=== PATIENT | female | born 1935 | race Hispanic/Latino ===

== ENCOUNTER 2018-04-23 06:43 | Observation (INO) | payer MEDICARE ==
[2018-04-21 15:56] LABS: BASOPHILS % 0.3 % (0.0-1.0); EOSINOPHILS # (AUTO) 0.1 (0.0-0.4); EOSINOPHILS % 0.5 % (0.0-6.0); HEMATOCRIT 42.5 % (34.2-44.1); HEMOGLOBIN 14.1 g/dL (12.0-16.0); LYMPHOCYTES # (AUTO) 3.3 (1.0-3.2); LYMPHOCYTES % 36.1 % (18.0-39.1); MEAN CORPUSCULAR HEMOGLOBIN 31.3 pg (28-32); MEAN CORPUSCULAR HGB CONC 33.2 g/dL (31-35); MEAN CORPUSCULAR VOLUME 94.2 fL (81-99); MONOCYTES # (AUTO) 0.8 (0.2-0.8); MONOCYTES % 8.5 % (4.4-11.3); NEUTROPHILS % 54.1 % (38.7-80.0); PLATELET COUNT 310 x10e3/uL (140-360); RED BLOOD COUNT 4.51 x10e6/uL (3.6-5.1); RED CELL DISTRIBUTION WIDTH 13.6 % (11.7-14.4)
--- NOTE | 2018-04-21 16:04 | Diagnostic Imaging Report ---
EXAMINATION: CHEST 2 VIEWS INDICATION: Preop. Back pain ^MD ORDER ^[id number] ^1530 ^PRE ADMIT COMPARISON: None FINDINGS: TUBES and LINES: None. LUNGS: Lungs are well inflated. Lungs are clear. There is no evidence of pneumonia or pulmonary edema. PLEURA: No pleural effusion or pneumothorax. HEART AND MEDIASTINUM: The cardiomediastinal silhouette is unremarkable. BONES AND SOFT TISSUES: No acute osseous lesion. Soft tissues are unremarkable. UPPER ABDOMEN: No free air under the diaphragm. IMPRESSION: No acute thoracic abnormality. Signed by: Dr. Jay Miller M.D. on 04/21/2018 4:00 PM
[2018-04-21 16:16] LABS: INR 0.94; PROTHROMBIN TIME 13.4 seconds (11.9-14.5)
[2018-04-21 16:17] LABS: ANION GAP 15.1 mmol/L (8-16); BLOOD UREA NITROGEN 15 mg/dL (7-26); BUN/CREATININE RATIO 18 (6-25); CALCIUM 9.9 mg/dL (8.4-10.2); CARBON DIOXIDE 23 mmol/L (22-29); CHLORIDE 101 mmol/L (98-107); CREATININE, SERUM 0.85 mg/dL (0.57-1.11); EST GLOMERULAR FILTRATION RATE > 60 ML/MIN (60-); GLUCOSE 88 mg/dL (74-118); PARTIAL THROMBOPLASTIN TIME 31.6 seconds (23.8-35.5); POTASSIUM 4.1 mmol/L (3.5-5.1); SODIUM 135 mmol/L (136-145)
[~2018-04-23] VITALS: Ht 157.5 cm; Wt 89.9 kg
[~2018-04-23 06:43] MED LIST: ACETAMINOPHEN500 M1 PO; BACITRACIN 50,000 UNIT VIAL ONE; BUPIVACAINE 0.5%/EPI 30 ML SDV INJ ONE; CIPROFLOXACIN500 MG PO; GELATIN SPONGE 12-7MM ONE; IBUPROFEN600 MG PO; LEVOTHYROXINE50 MCG PO; MYRBETRIQ25 MG PO; NAPROXEN250 MG PO; NORCO 5-325 TA1 EACH PO; SOMA350 MG PO; THROMBIN FOR SOLN 5,000 UNIT VIAL ONE; ULTRAM 50MG50 MG PO
--- OUTSIDE RECORDS SUMMARY | 2018-04-23 06:46 | XMS REPORT ---
Author Author [facility] Organization [facility] Address Unknown Phone Unavailable Care Team Providers Care Circular Distributor Name Role Phone ARCAELI HOUSE Unavailable Unavailable Problems This patient has no known problems. Allergies, Adverse Reactions, Alerts This patient has no known allergies or adverse reactions. Medications This patient has no known medications. Results Test Description Test Time Test Comments Text Results Atomic Results Result Comments CHEST 2 VIEWS 2018-04-21 16:00:00 [place] [id number] Patient Name: CATHY MORAN MR #: [id number] : 1935 Age/Sex: 82/F Req #: [id number] Adm Physician: Ordered by: ARACELI HOUSE MD Report #: [id number] Location: OR Room/Bed: Procedure: [id number] DX/CHEST 2 VIEWS Exam Date: 04/21/18 Exam Time: 1530 REPORT STATUS: Signed EXAMINATION: CHEST 2 VIEWS INDICATION: Preop. Back pain ORDER [id number] PRE ADMIT COMPARISON: None FINDINGS: TUBES and LINES: None. LUNGS: Lungs are well inflated. Lungs are clear. There is no evidence of pneumonia or pulmonary edema. PLEURA: No pleural effusion or pneumothorax. HEART AND MEDIASTINUM: The cardiomediastinal silhouette is unremarkable. BONES AND SOFT TISSUES: No acute osseous lesion. Soft tissues are unremarkable. UPPER ABDOMEN: No free air under the diaphragm. IMPRESSION: No acute thoracic abnormality. Signed by: Dr. Jay Miller M.D. on 04/21/2018 4:00 PM Dictated By: JYA MILLER MD, MD 99 Transcribed By: TOM on 04/21/181599 COPY TO: ARACELI HOUSE MD
[2018-04-23] MEDS ORDERED: CEFAZOLIN SOD 2 GM/D5W 50ML 50 ML IV ONE (07:16)
[2018-04-23] MEDS ORDERED: LIDOCAINE HCL (LTA) 4 ML SOLN ONE (07:20)
[2018-04-23] MEDS ORDERED: GELATIN SPONGE 12-7MM ONE (07:58)
[2018-04-23] MEDS ORDERED: BACITRACIN 50,000 UNIT VIAL ONE (07:58)
[2018-04-23] MEDS ORDERED: THROMBIN FOR SOLN 5,000 UNIT VIAL ONE (07:58)
[2018-04-23] MEDS ORDERED: BUPIVACAINE 0.5%/EPI 30 ML SDV INJ ONE (07:58)
[2018-04-23] MEDS: LACTATED RINGER'S 1,000 ML IV SCH (10:18)
[2018-04-23] MEDS ORDERED: PROMETHAZINE HCL (IM) 25 MG/ML VIAL IM PRN (10:30)
[2018-04-23] MEDS ORDERED: CARISOPRODOL 350 MG TAB PO PRN (10:30)
[2018-04-23] MEDS ORDERED: ONDANSETRON HCL INJ 2MG/ML 2ML 2 MG/ML VIAL IV PRN (10:30)
[2018-04-23] MEDS ORDERED: HYDROMORPHONE 2MG/ML 2 MG/ML ML IV PRN (10:30)
[2018-04-23] MEDS ORDERED: ACETAMINOPHEN 325 MG TAB PO PRN (10:30)
[2018-04-23] MEDS ORDERED: MORPHINE SULFATE 5 MG/ML VIAL IM PRN (10:30)
[2018-04-23] MEDS ORDERED: OXYCODONE/ACETAMINOPHEN 5-325 1 EACH TABLET PO PRN (10:30)
[2018-04-23] MEDS ORDERED: MAGNESIUM/ALUMINUM/SIMETHICONE 30 ML UDC PO PRN (10:30)
[2018-04-23] MEDS ORDERED: CEPACOL SORE THROAT LOZENGES PO PRN (10:30)
[2018-04-23] MEDS ORDERED: HYDRALAZINE HCL 20 MG/ML VIAL ONE (10:41)
[2018-04-23] MEDS ORDERED: ONDANSETRON HCL INJ 2MG/ML 2ML 2 MG/ML VIAL ONE ×2 (11:07→18:44)
--- NOTE | 2018-04-23 12:00 | Diagnostic Imaging Report ---
SINGLE VIEW SPINE AND LUMBAR INTRAOPERATIVE - 1 VIEW HISTORY: ^[id number] ^0833 ^X-RAY FOR SURGICAL LEVEL. COMPARISON: None available. FINDINGS: Bones: The spine is not well visualized. Joints: No well evaluated but there appears to be moderate narrowing at L4-L5 and L5-S1. Soft tissues: Surgical needle at the level of L3-L4 vertebral bodies. IMPRESSION: Surgical needle at the level of L3-L4 vertebral bodies. Signed by: Dr. Kerrie Alston M.D. on 04/23/2018 11:56 AM
--- NOTE | 2018-04-23 12:01 | Diagnostic Imaging Report ---
LUMBAR SPINE ONE VIEW INTRAOPERATIVE - 1 VIEW HISTORY: ^[id number] ^[id number] ^X-RAY FOR SURGICAL LEVEL. COMPARISON: None available. FINDINGS: Bones: Vertebral body is not well visualized. Joints: There appears to be narrowing at the L4-L5 and L5-S1. Soft tissues: Surgical needle overlying the superior pedicles of L4 vertebral body. IMPRESSION: Surgical needle overlying the superior pedicles of L4 vertebral body. Signed by: Dr. Kerrie Alston M.D. on 04/23/2018 11:58 AM
[2018-04-23] MEDS ORDERED: FENTANYL CITRATE/PF 100MCG/2 ML INJ ONE (13:34)
--- NOTE | 2018-04-23 13:53 | Operative Report ---
DATE OF PROCEDURE: April 23, 2018 PREOPERATIVE DIAGNOSIS: L4-5 spinal stenosis with left-sided inferiorly migrated disk herniation. POSTOPERATIVE DIAGNOSIS: L4-5 spinal stenosis with left-sided inferiorly migrated disk herniation. PROCEDURES 1. L4 bilateral decompressive laminectomy and L4-5 bilateral medial facetectomies, 43681. 2. L5 bilateral partial decompressive laminectomy and left-sided microsurgical diskectomy, 50548. ANESTHESIA: General. INDICATIONS: The patient is an 82-year-old woman who presents with severe L4-5 spinal stenosis due to facet and ligamentous hypertrophy, superimposed on which she has a left-sided disk herniation with substantial inferior migration of the extruded disk fragment into the region of the axilla of the left L5 nerve root. The patient was taken to the operating room for a microsurgical decompression of the L4-5 segment. DESCRIPTION OF PROCEDURE: After the induction of general anesthesia, the patient was placed on the operating table in the prone position over a Duncan frame. The lumbar region was prepped and draped in a sterile fashion. A preoperative x-ray was obtained. A midline incision was created. The lumbar fascia was opened along the midline, and subperiosteal dissection was carried out to expose the spinous processes and laminae of L4 and L5 and the medial aspect of the L4-5 facet joints bilaterally. A 2nd x-ray confirmed correct localization. The spinous process of L4 and the upper aspect of the L5 spinous process were resected. A high-speed drill equipped with a janett bur was then used to drill the inferior aspect of the lamina of L4, the superior rim of the lamina of L5, and the medial aspect of the L4-5 hypertrophic facet joints bilaterally. The markedly hypertrophic ligamentum flavum was carefully resected, and the dura and the L5 traversing nerve roots were fully exposed and decompressed. On the left side, the region of the axilla of the L5 nerve root was explored. A large inferiorly migrated disk extrusion came into view. This was mobilized with a micro-ball probe, grasped with a micro-pituitary rongeur and removed as a large fragment. The micro-ball probe was used to further probe the axilla of the L5 nerve root, and 2 additional fragments of disk were retrieved and removed from this region and fully decompressed the L5 nerve root. Meticulous hemostasis was secured. A small piece of Gelfoam was left in the region of the axilla of the L5 nerve root for hemostasis. The wound was copiously irrigated with bacitracin solution. The dura was covered with Gelfoam. The parasternal muscle and fascial layers were closed with #0 Vicryl sutures. The subcutaneous layer was closed with 2-0 Vicryl sutures. The skin was closed with 3-0 Monocryl sutures in a subcuticular fashion. Steri-Strips and a dressing were applied. The patient was awakened, extubated, and taken to the postanesthesia care unit in stable condition. No intraoperative complications were encountered. Estimated blood loss was 20 mL. Job#: [id number]
--- NOTE | 2018-04-23 14:30 | NUR ---
RECEIVED PATIENT TO ROOM 105, PATIENT IS AMBULATORY WITH ASSISTANCE, AWAKE, ALERT AND ORIENTED X3, 2 DAUGHTER, 2 SONS, AND 2 GRAND DAUGHTERS AT BEDSIDE, PATIENT IS HARD OF HEARING, PATIENT WALKED TO TOILET AND URINATED WITH MINIMAL ASSISTANCE, COMPLAINED OF PAIN OF 2 OUT OF 10, WITH PINCHING SENSATION WHEN SHE WALKS AND LEANS TO THE SIDE IN THE BED, PAIN GOES AWAY WHEN SHE LIES SUPINE.
[2018-04-23 14:39] VITALS: BP 168/85
[2018-04-23 14:42] VITALS: BP 168/85
[2018-04-23] MEDS ORDERED: NAPROXEN250 MG PO (16:53)
[2018-04-23 16:55] VITALS: BP 185/82
[2018-04-23] MEDS: CARISOPRODOL 350 MG TAB PO SCH ×2 (17:14→20:44)
[2018-04-23] MEDS: CEFAZOLIN SOD 1 GM/NS 50ML 50 ML IV SCH (17:14)
[2018-04-23] MEDS: NAPROXEN 250 MG TAB PO SCH (17:14)
[2018-04-23] MEDS ORDERED: LIDOCAINE HCL 2% LOCAL INJ 5 ML SDV VIAL INJ ONE (18:44)
[2018-04-23] MEDS ORDERED: NEOSTIGMINE 5 MG/5ML SYR ONE (18:44)
[2018-04-23] MEDS ORDERED: DEXAMETHASONE SOD PHOS INJ 4 MG/ML VIAL ONE (18:44)
[2018-04-23] MEDS ORDERED: ROCURONIUM BROMIDE 10 MG/ML 5ML VIAL ONE (18:44)
[2018-04-23] MEDS ORDERED: SEVOFLURANE INHAL SOLN 250 ML PEN BTL ONE (18:44)
[2018-04-23] MEDS ORDERED: PROPOFOL IV EMULSION 10 MG/ML 20 ML VIAL ONE (18:44)
[2018-04-23] MEDS ORDERED: ACETAMINOPHEN 1000 MG/100 ML IV ONE (18:44)
[2018-04-23] MEDS ORDERED: GLYCOPYRROLATE INJ 1MG/ 5 ML SYR ONE (18:44)
[2018-04-23 20:00] VITALS: BP 153/75
[2018-04-23] MEDS ORDERED: ZOLPIDEM TARTRATE 5 MG TAB PO PRN (21:00)
[2018-04-23 22:32] VITALS: BP 153/75
[2018-04-24] VITALS: BP 156/77
[2018-04-24] MEDS: CEFAZOLIN SOD 1 GM/NS 50ML 50 ML IV SCH ×2 (00:50→09:09)
[2018-04-24] MEDS: LACTATED RINGER'S 1,000 ML IV SCH ×2 (02:58→11:18)
[2018-04-24] MEDS ORDERED: LEVOTHYROXINE SODIUM 50 MCG TAB PO SCH (06:00)
--- NOTE | 2018-04-24 07:42 | NUR ---
Received patient, patient resting in bed at this time no signs of distress. Bed in lowest position, wheels locked, side rails x2, call light in reach. Will continue to monitor.
[2018-04-24] MEDS ORDERED: NORCO 7.5-3251 EACH PO (07:56)
[2018-04-24 08:04] VITALS: BP 140/73
--- NOTE | 2018-04-24 08:59 | NUR ---
CASE MANAGEMENT INITIAL ASSESSMENT Die Casting Machine Operator to bedside to discuss plan of care with patient/family. CM/SW role and care transitions discussed. Anticipated discharge plan discussed along with duration of care. CM/SW discussed patients right to make decisions in care. CM/SW work hours given. Patient lives: with son and 2 granddaughters Admit/Transfer: from PACU Hospital/ER visits since last admit: last hospitalization in 1979 POA/Emergency contact: daughter Silvia Beatty [phone] Current/Previous Home Health: none; states no need PCP/Follow-up Care: Dr. Moreno; Dr. Lopez - will follow up as instructed Current/Previous DME: none, states no need Medications (referring to index hospitalization or the first time you were in the hospital) a. Were changes made in your medications when you were in the hospital on [date of index hospitalization]? n/a b. Did you understand the changes? n/a c. Were you able to obtain your new medications right away? n/a d. Were you able to take your medications like the doctor wanted you to? n/a e. Did the hospital give you an accurate, easy to understand list of medications when you left? n/a Scale of 1-10 how comfortable does patient feel with disease management in outpatient settin Other Services: none Employment Status: retired Areas of Concerns: none Referral Needs: none Education Needs: post surgical education IMM/CARBAJAL given and signed (if applicable): CARBAJAL; signed copy in chart. copy to pt. Goal for discharge: home CM/SW left business card at the bedside with contact information. Name and number was also written on the patients whiteboard. Patient verbalized understanding of discussion. CM will follow-up with ongoing discharge and transition of care needs.
[2018-04-24] MEDS ORDERED: (Mirabegron (Myrbetriq) 25 MG) PO SCH (09:00)
[2018-04-24] MEDS: CARISOPRODOL 350 MG TAB PO SCH (09:09)
[2018-04-24] MEDS: NAPROXEN 250 MG TAB PO SCH (09:09)
[2018-04-24 09:46] VITALS: BP 140/73
--- NOTE | 2018-04-24 11:13 | NUR ---
Removed patients IV. Catheter tip intact and pressure dressing applied.
--- NOTE | 2018-04-24 11:20 | NUR ---
Patient discharged from facility. Patient gathered all personal belongings, discharge instructions, follow up information, and prescriptions. No signs of distress when leaving facility.
== END 2018-04-24 11:23 | disposition home or self-care (01) ==
LOC: OR 06:43 → PACU V 10:19 → MED/SURG 14:27
PROVIDERS: ADMIT Neurological Surgery; ATTEND Neurological Surgery
DX: M48.062 Spinal stenosis, lumbar region with neurogenic claudication (principal); M51.16 Intervertebral disc disorders with radiculopathy, lumbar region; E03.9 Hypothyroidism, unspecified; M19.90 Unspecified osteoarthritis, unspecified site
CPT/HCPCS: 36415; 63047; 63048; 71046; 72020; 80048; 85025; 85610; 85730; 86850; 86900; 88304; 93005; G0378 ×2; J0131; J0360; J0690 ×3; J1100; J2001; J2405; J2704; J3490; J7121 ×2; J2270; J2550

== ENCOUNTER 2018-08-25 17:54 | Emergency (ER) | payer MEDICARE ==
[~2018-08-25] VITALS: Ht 157.5 cm; Wt 89.8 kg
[~2018-08-25 17:54] MED LIST changes: -BACITRACIN 50,000 UNIT VIAL ONE; -BUPIVACAINE 0.5%/EPI 30 ML SDV INJ ONE; -GELATIN SPONGE 12-7MM ONE; +NORCO 7.5-3251 EACH PO; -THROMBIN FOR SOLN 5,000 UNIT VIAL ONE
== END 2018-08-25 18:26 | disposition home or self-care (01) ==
LOC: ER 17:54
DX: L03.116 Cellulitis of left lower limb (principal)
CPT/HCPCS: 99283

== ENCOUNTER → 2018-10-02 | Outpatient (CLI) | payer MEDICARE ==
[~2018-10-02] MED LIST changes: +REGADENOSON 0.4 MG/5 ML SYR IV ONE
--- NOTE | 2018-10-02 13:56 | Myoview Stress Test ---
DATE OF STUDY: 10/02/2018 07:36:00 Stress Test - Treadmill ONLY PROCEDURE PERFORMED: Lexiscan Myoview stress test. INDICATION: Chest pain. TECHNIQUE: The patient was given 11 mCi of Myoview. Resting images were obtained in the horizontal long axis and vertical long axis and short axis. The patient was then hooked up to the EKG machine. Lexiscan was infused over 15 seconds. During Lexiscan infusion, the patient had no symptoms. Immediately after Lexiscan infusion, the patient was given 33 mCi of Myoview. Stress images were obtained 30 minutes after completion of Lexiscan infusion. Stress images were obtained in the horizontal long axis, vertical long axis, and short axis. RESULTS: 1. The resting EKG demonstrated normal sinus rhythm with nonspecific ST and T-wave changes. 2. There were no EKG changes and no symptoms during Lexiscan infusion. 3. There was normal perfusion to all segments of the myocardium in both stress and rest. 4. There was normal left ventricular size and function with an ejection fraction of 74%. CONCLUSION: Normal Myoview nuclear stress test with no evidence of ischemia and normal left ventricular size and function. Noman Taylor MD [facility]/MODL /[id number]
== END ==
LOC: NM 07:18
PROVIDERS: ATTEND Internal Medicine Cardiovascular Disease
DX: R06.02 Shortness of breath (principal)
CPT/HCPCS: 78452; 93017; A9502; J2785

== ENCOUNTER 2019-09-09 08:36 | Emergency (ER) | payer MEDICARE, OTHER ==
[~2019-09-09] VITALS: Ht 157.5 cm; Wt 89.8 kg
[~2019-09-09 08:36] MED LIST changes: -REGADENOSON 0.4 MG/5 ML SYR IV ONE; +ZOFRAN4 MG PO
--- NOTE | 2019-09-09 09:28 | Diagnostic Imaging Report ---
EXAMINATION: CHEST SINGLE (PORTABLE) INDICATION: Pneumonia COMPARISON: Chest radiograph 02/06/2019 FINDINGS: LINES/TUBES:None LUNGS:The lungs are well-inflated. Hazy left lung base opacity. PLEURA:No pleural effusion or pneumothorax. MEDIASTINUM:The cardiomediastinal silhouette appears normal in size and shape. BONES/SOFT TISSUES:No acute osseous injury. ABDOMEN:No free air under the diaphragm. IMPRESSION: Hazy left lung base opacity concerning for pneumonia. Signed by: Rishi Hinojosa MD on 09/09/2019 9:25 AM
--- NOTE | 2019-09-09 10:32 | Emergency Department Note ---
History of Present Illnes History of Present Illness Chief Complaint: COVID PUI History of Present Illness This is a 84 year old female arrives to the ED with complaints of cough and fever. Patient states there is absolutely no way she will have coronavirus when asked why patient is unable to explain. Patient she came in because of the nagging cough and fever. Historian: Patient Arrival Mode: Car Java Web Services Developer Required: No Onset (how long ago): day(s) Radiation: Reports non-radiation Severity: mild Onset quality: gradual Duration (how long): day(s) Progression: waxing and waning Chronicity: new Context: Denies recent illness, Denies trauma/injury Relieving factors: none Exacerbating factors: none Past Medical/Family History Physician Review I have reviewed the patient's past medical and family history. Any updates have been documented here. Past Medical History Recent Fever: Yes Clinical Suspicion of Infectio: Yes New/Unexplained Change in Ment: No Past Medical History: Hypothyroidism Other Medical History: SCIATICA CHRONIC LEG SWELLING Past Surgical History: Cholecysctectomy, Hysterectomy, Hernia Repair, Cataract Removal Other Surgery: BLADDER LIFT Social History Smoking Cessation: Never Smoker Counseling Performed: No Alcohol Use: None Any Illegal Drug Use: No TB Exposure/Symptoms: No Physically hurt or threatened: No Family History Family history of heart diseas: No Other Last Tetanus: >5 YEARS Any Pre-Existing Lines (PICC,: No Is patient up to date on immun: Yes Last Flu: UNK Last Pneumovax: UNK Review of Systems Review of Systems Constitutional: Reports as per HPI, Reports chills, Reports fever EENTM: Reports no symptoms Cardiovascular: Reports no symptoms Respiratory: Reports as per HPI, Reports cough Gastrointestinal: Reports no symptoms Genitourinary: Reports no symptoms Musculoskeletal: Reports no symptoms Integumentary: Reports no symptoms Neurological: Reports no symptoms Psychological: Reports no symptoms Endocrine: Reports no symptoms Hematological/Lymphatic: Reports no symptoms Physical Exam Related Data Allergies: Coded Allergies: Fish Containing Products (Verified Allergy, Mild, 08/25/18) RASH cyclobenzaprine HCl (Verified Allergy, Mild, HIVES, 08/25/18) methylprednisolone (Verified Allergy, Mild, HIVES, 08/25/18) propoxyphene (Verified Allergy, Mild, 08/25/18) RASH tramadol (Verified Allergy, Mild, HIVES, 08/25/18) Uncoded Allergies: TAPE (Allergy, Unknown, RASH, 04/23/18) Triage Vital Signs Vital Signs Date Time Temp Pulse Resp B/P (MAP) Pulse Ox O2 Delivery O2 Flow Rate FiO2 09/09/19 08:46 99.1 94 20 162/94 96 Vital signs reviewed: Yes Physical Exam CONSTITUTIONAL Constitutional: Present well-developed, Present well-nourished HENT HENT: Present normocephalic, Present atraumatic, Present oropharynx clear/moist, Present nose normal HENT L/R: Present left ext ear normal, Present right ext ear normal EYES Eyes: Reports PERRL, Reports conjunctivae normal NECK Neck: Present ROM normal PULMONARY Pulmonary: Present effort normal, Present breath sounds normal CARDIOVASCULAR Cardiovascular: Present regular rhythm, Present heart sounds normal, Present capillary refill normal, Present normal rate GASTROINTESTINAL Abdominal: Present soft, Present nontender, Present bowel sounds normal GENITOURINARY Genitourinary: Present exam deferred SKIN Skin: Present warm, Present dry MUSCULOSKELETAL Musculoskeletal: Present ROM normal NEUROLOGICAL Neurological: Present alert, Present oriented x 3, Present no gross motor or sensory deficits PSYCHOLOGICAL Psychological: Present mood/affect normal, Present judgement normal Results Imaging Imaging results reviewed: Yes Assessment & Plan Medical Decision Making MDM Patient evaluated in the current Covid 19 pandemic and disaster medicine care was provided- 84-year-old female right ED with complaints of cough and fever. Patient clinically appeared to be positive for Covid 19. Patient states she does not want blood work, does not one be admitted to the hospital and did not wish to stay for chest x-ray. Spoke to patient at length about concerning findings related Covid 19. Patient expressed understanding. Patient has a strong support system and lives with her granddaughter. Patient understands she is welcome to return to the emergency department at any time. Assessment & Plan Final Impression: (1) COVID-19 (2) Pneumonia Depart Disposition: HOME, SELF-CARE Last Vital Signs Date Time Temp Pulse Resp B/P (MAP) Pulse Ox O2 Delivery O2 Flow Rate FiO2 09/09/19 08:46 99.1 94 20 162/94 96 Home Meds Active Scripts Ondansetron Hcl* (ZOFRAN*) 4 Mg Tablet, 4 MG PO Q8HR, #12 Prov:CHRISTINA LINDER DO 02/06/19 Reported Medications Hydrocodone Bit/Acetaminophen (NORCO 7.5-325 TABLET) 1 Each Tablet, 1 EA PO Q6H PRN for PAIN, TAB 04/24/18 Naproxen (NAPROXEN) 250 Mg Tablet, 500 MG PO BID, TAB 04/23/18 Acetaminophen (ACETAMINOPHEN EXTRA STRENGTH) 500 Mg Tablet, 500 MG PO DAILY THERAPEUTICALLY SUBSTITUTED WITH ACETAMINOPHEN 325MG 04/21/18 Mirabegron (MYRBETRIQ) 25 Mg Tab.er.24h, 25 MG PO DAILY 04/21/18 Carisoprodol (SOMA) 350 Mg Tablet, 350 MG PO TID, TAB 04/21/18 Levothyroxine Sodium (LEVOTHYROXINE SODIUM) 50 Mcg Tablet, 100 MCG PO DAILY, #30 TAB 04/21/18 CHRISTINA LINDER, Sep 09, 2019 10:32
== END 2019-09-09 10:02 | disposition home or self-care (01) ==
LOC: ER 08:36
DX: R50.9 Fever, unspecified (principal); U07.1 COVID-19; J12.89 Other viral pneumonia; R05 Cough; E03.9 Hypothyroidism, unspecified
CPT/HCPCS: 71045; 99282